=== PATIENT | male | born 1985 | race Caucasian/White ===

== ENCOUNTER 2019-11-30 09:22 | Inpatient (IN) | payer MEDICAID, MEDICARE, OTHER ==
[~2019-11-30] VITALS: Ht 175.3 cm; Wt 60.4 kg
[~2019-11-30 09:22] MED LIST: RISP4TAB73 PO; SERT50TA12 PO
[2019-11-30] MEDS ORDERED: HALOPERIDOL 5 MG TABLET PO PRN (13:45)
[2019-11-30] MEDS ORDERED: ZOLPIDEM TARTRATE 10 MG TABLET PO PRN (13:45)
[2019-11-30 18:00] VITALS: BP 138/85
[2019-11-30] MEDS: LORazepam 2 MG TABLET PO PRN (20:00)
[2019-11-30] MEDS ORDERED: GuaiFENesin/D-METHORPHAN [SUGAR-FREE] 200-20MG/10 ML SYRUP UDCUP PO PRN (20:15)
[2019-11-30] MEDS ORDERED: ACETAMINOPHEN 325 MG TABLET PO PRN (20:15)
[2019-11-30] MEDS ORDERED: MAG HYDROX/AL HYDROX/SIMETH ES 30 ML SUSPENSION UDCUP PO PRN (20:15)
[2019-11-30] MEDS ORDERED: IBUPROFEN 400 MG TABLET PO PRN (20:15)
[2019-11-30] MEDS ORDERED: LOPERAMIDE HCL 2 MG CAPSULE PO PRN (20:15)
[2019-11-30] MEDS ORDERED: CloNIDine HCL 0.1 MG TABLET PO PRN (20:15)
[2019-11-30] MEDS ORDERED: MAGNESIUM HYDROXIDE SUSPENSION 30 ML UDCUP PO PRN (20:15)
[2019-11-30] MEDS ORDERED: NICOTINE 14 MG/24 HOUR PATCH TD PRN (20:15)
[2019-11-30] MEDS ORDERED: ONDANSETRON HCL 4 MG TABLET PO PRN (20:15)
[2019-11-30] MEDS ORDERED: DOCUSATE SODIUM 100 MG CAPSULE PO PRN (20:15)
[2019-11-30] MEDS ORDERED: ALBUTEROL SULFATE HFA 90 MCG/PUFF 8 GM INHALER IH PRN (20:15)
[2019-11-30] MEDS ORDERED: PETROLATUM,WHITE 28 GM JELLY TP PRN (20:15)
[2019-12-01 05:32] VITALS: BP 110/62
[2019-12-01 08:31] VITALS: BP 121/61
[2019-12-01 16:07] VITALS: BP 128/60
[2019-12-01] MEDS: LORazepam 2 MG TABLET PO PRN ×2 (16:29→20:40)
[2019-12-01] MEDS: OLANZapine 5 MG TABLET PO SCH (16:29)
[2019-12-02] MEDS: OLANZapine 5 MG TABLET PO SCH ×2 (08:52→16:33)
[2019-12-02] MEDS: LORazepam 2 MG TABLET PO PRN (16:33)
[2019-12-02 17:54] VITALS: BP 102/70
[2019-12-03] MEDS: OLANZapine 5 MG TABLET PO SCH ×2 (08:48→16:04)
[2019-12-03] MEDS: LORazepam 2 MG TABLET PO PRN (23:12)
[2019-12-04 05:46] VITALS: BP 128/74
[2019-12-04] MEDS: OLANZapine 5 MG TABLET PO SCH ×2 (08:42→16:30)
[2019-12-04 08:56] VITALS: BP 126/72
[2019-12-04] MEDS: LORazepam 2 MG TABLET PO PRN (21:19)
[2019-12-05 05:10] VITALS: BP 122/84
[2019-12-05] MEDS: OLANZapine 5 MG TABLET PO SCH ×2 (08:05→16:27)
[2019-12-05 16:10] VITALS: BP 126/96
[2019-12-05] MEDS: LORazepam 2 MG TABLET PO PRN ×2 (16:27→20:45)
[2019-12-06 02:52] VITALS: BP 126/79
[2019-12-06] MEDS: LORazepam 2 MG TABLET PO PRN (02:54)
[2019-12-06 08:13] VITALS: BP 127/58
[2019-12-06] MEDS: OLANZapine 5 MG TABLET PO SCH ×2 (08:40→16:12)
[2019-12-06] MEDS ORDERED: OLAN5TAB2 PO (15:49)
[2019-12-06 16:04] VITALS: BP 124/75
== END 2019-12-06 17:05 | disposition home or self-care (01) | DRG 885 ==
LOC: EMS 09:23 → B2S 15:06 → B3A 18:09
PROVIDERS: ADMIT Psychiatry & Neurology Child & Adolescent Psychiatry; ATTEND Psychiatry & Neurology Child & Adolescent Psychiatry
DX: F25.1 Schizoaffective disorder, depressive type (principal); G44.209 Tension-type headache, unspecified, not intractable; F10.10 Alcohol abuse, uncomplicated; F12.90 Cannabis use, unspecified, uncomplicated; F17.200 Nicotine dependence, unspecified, uncomplicated; F41.9 Anxiety disorder, unspecified; Z59.0 Homelessness; Z91.14 Patient's other noncompliance with medication regimen
CPT/HCPCS: Z7502; Z7610

== ENCOUNTER 2019-12-18 17:56 | Inpatient (IN) | payer MEDICAID, MEDICARE, OTHER ==
[~2019-12-18] VITALS: Ht 172.7 cm; Wt 62.7 kg
[~2019-12-18 17:56] MED LIST changes: +OLAN5TAB2 PO; -RISP4TAB73 PO; -SERT50TA12 PO
[2019-12-18 19:11] LABS: GLUCOSE,POINT OF CARE 79 MG/DL (70-110)
[2019-12-18] MEDS ORDERED: OLANZapine 5 MG RAPDIS TABLET PO PRN (20:15)
[2019-12-18] MEDS ORDERED: LORazepam 2 MG TABLET PO PRN (20:15)
[2019-12-18 21:48] LABS: AMPHET/METH SCREEN,URINE NEGATIVE (NEGATIVE); BARBITURATE SCREEN, URINE NEGATIVE (NEGATIVE); BENZODIAZEPINES SCREEN,URINE NEGATIVE (NEGATIVE); CANNABINOID SCREEN,URINE POSITIVE (NEGATIVE); COCAINE SCREEN,URINE NEGATIVE (NEGATIVE); METHADONE SCREEN, URINE NEGATIVE (NEGATIVE); OPIATE SCREEN,URINE NEGATIVE (NEGATIVE); PHENCYCLIDINE SCREEN,URINE NEGATIVE (NEGATIVE)
[2019-12-18] MEDS: ZOLPIDEM TARTRATE 10 MG TABLET PO PRN (22:10)
[2019-12-19 01:58] VITALS: BP 129/59
[2019-12-19 09:04] VITALS: BP 148/89
[2019-12-19] MEDS ORDERED: GuaiFENesin/D-METHORPHAN [SUGAR-FREE] 200-20MG/10 ML SYRUP UDCUP PO PRN (09:15)
[2019-12-19] MEDS ORDERED: ACETAMINOPHEN 325 MG TABLET PO PRN (09:15)
[2019-12-19] MEDS ORDERED: IBUPROFEN 400 MG TABLET PO PRN (09:15)
[2019-12-19] MEDS ORDERED: LOPERAMIDE HCL 2 MG CAPSULE PO PRN (09:15)
[2019-12-19] MEDS ORDERED: NICOTINE 14 MG/24 HOUR PATCH TD PRN (09:15)
[2019-12-19] MEDS ORDERED: ONDANSETRON HCL 4 MG TABLET PO PRN (09:15)
[2019-12-19] MEDS ORDERED: PETROLATUM,WHITE 28 GM JELLY TP PRN (09:15)
[2019-12-19] MEDS ORDERED: MAG HYDROX/AL HYDROX/SIMETH ES 30 ML SUSPENSION UDCUP PO PRN (09:15)
[2019-12-19] MEDS ORDERED: CloNIDine HCL 0.1 MG TABLET PO PRN (09:15)
[2019-12-19] MEDS ORDERED: MAGNESIUM HYDROXIDE SUSPENSION 30 ML UDCUP PO PRN (09:15)
[2019-12-19] MEDS ORDERED: DOCUSATE SODIUM 100 MG CAPSULE PO PRN (09:15)
[2019-12-19] MEDS ORDERED: ALBUTEROL SULFATE HFA 90 MCG/PUFF 8 GM INHALER IH PRN (09:15)
[2019-12-19 17:09] VITALS: BP 117/69
[2019-12-19] MEDS: OLANZapine 5 MG TABLET PO SCH (20:00)
[2019-12-19] MEDS: ZOLPIDEM TARTRATE 10 MG TABLET PO PRN (20:08)
[2019-12-20] MEDS: OLANZapine 5 MG TABLET PO SCH ×2 (08:27→20:08)
[2019-12-20 08:39] VITALS: BP 144/67
[2019-12-20 16:35] VITALS: BP 135/60
[2019-12-20] MEDS: ZOLPIDEM TARTRATE 10 MG TABLET PO PRN (20:09)
[2019-12-21] MEDS: OLANZapine 5 MG TABLET PO SCH (08:59)
[2019-12-21 09:45] VITALS: BP 121/68
[2019-12-21] MEDS ORDERED: LORazepam 2 MG/ML VIAL IM ONE (12:45)
[2019-12-21] MEDS ORDERED: DiphenhydrAMINE HCL 50 MG/ML VIAL IM ONE (12:45)
[2019-12-21] MEDS ORDERED: HALOPERIDOL LACTATE 5 MG/ML VIAL IM ONE (12:45)
[2019-12-21] MEDS: ZOLPIDEM TARTRATE 10 MG TABLET PO PRN (20:15)
[2019-12-21] MEDS: OLANZapine 7.5 MG TABLET PO SCH (20:15)
[2019-12-22] MEDS: OLANZapine 7.5 MG TABLET PO SCH ×2 (08:23→20:35)
[2019-12-22] MEDS: ZOLPIDEM TARTRATE 10 MG TABLET PO PRN (20:35)
[2019-12-23 04:20] VITALS: BP 117/71
[2019-12-23 09:27] VITALS: BP 152/80
[2019-12-23] MEDS: OLANZapine 7.5 MG TABLET PO SCH ×2 (09:45→20:52)
[2019-12-23 16:29] VITALS: BP 117/71
[2019-12-23] MEDS: ZOLPIDEM TARTRATE 10 MG TABLET PO PRN (20:52)
[2019-12-24] MEDS: OLANZapine 7.5 MG TABLET PO SCH ×2 (08:44→20:43)
[2019-12-24 16:22] VITALS: BP 148/85
[2019-12-24] MEDS: ZOLPIDEM TARTRATE 10 MG TABLET PO PRN (20:43)
[2019-12-25] MEDS: OLANZapine 7.5 MG TABLET PO SCH ×2 (09:34→20:04)
[2019-12-25] MEDS: ZOLPIDEM TARTRATE 10 MG TABLET PO PRN (20:04)
[2019-12-26] MEDS: OLANZapine 7.5 MG TABLET PO SCH (08:31)
[2019-12-26 16:16] VITALS: BP 115/76
[2019-12-26] MEDS: ZOLPIDEM TARTRATE 10 MG TABLET PO PRN (20:29)
[2019-12-27] MEDS: OLANZapine 7.5 MG TABLET PO SCH ×2 (08:29→11:54)
[2019-12-27 16:00] VITALS: BP 113/55
[2019-12-28 08:00] VITALS: BP 118/63
[2019-12-28] MEDS: OLANZapine 7.5 MG TABLET PO SCH ×2 (09:13→12:17)
[2019-12-28 18:35] VITALS: BP 105/54
[2019-12-28] MEDS: ZOLPIDEM TARTRATE 10 MG TABLET PO PRN (20:07)
[2019-12-29 08:00] VITALS: BP 129/75
[2019-12-29] MEDS: OLANZapine 7.5 MG TABLET PO SCH ×2 (10:58→13:40)
[2019-12-29] MEDS ORDERED: OLAN7.5T2 PO (15:31)
== END 2019-12-29 16:05 | disposition home or self-care (01) | DRG 885 ==
LOC: EMS 18:13 → 3EI 20:02 → 3EC 12-21 13:31 → 3EI 12-27 14:49
PROVIDERS: ADMIT Psychiatry & Neurology Child & Adolescent Psychiatry; ATTEND Psychiatry & Neurology Child & Adolescent Psychiatry
DX: F20.0 Paranoid schizophrenia (principal); F10.10 Alcohol abuse, uncomplicated; G44.209 Tension-type headache, unspecified, not intractable; R45.850 Homicidal ideations; F17.210 Nicotine dependence, cigarettes, uncomplicated; F12.10 Cannabis abuse, uncomplicated
CPT/HCPCS: 87081; J1200; J1630; J2060